=== PATIENT | female | born 1945 | race Caucasian/White ===

== ENCOUNTER → 2016-10-21 | Outpatient (CLI) | payer MEDICARE ==
--- NOTE | 2016-10-21 11:30 | XR ---
EXAMINATION TYPE: XR shoulder complete LT , 3 VIEWS DATE OF EXAM ORDERED: 10/21/2016 HISTORY: M25.512 L shoulder pain. COMPARISON: None. FINDINGS: There are mild hypertrophic changes in the left AC joint. No fracture, dislocation or othe r acute osseous lesion is seen. IMPRESSION: 1. NO ACUTE OSSEOUS LESION. 2. DEGENERATIVE CHANGE, LEFT AC JOINT.
== END | disposition home or self-care (01) ==
LOC: RADXRMAIN 11:04
PROVIDERS: ATTEND Internal Medicine
DX: M25.512 Pain in left shoulder (principal)

== ENCOUNTER → 2017-02-01 | Outpatient (CLI) | payer MEDICARE ==
--- NOTE | 2017-02-02 10:14 | MM ---
Reason for exam: screening (asymptomatic). Last mammogram was performed 1 year and 6 months ago. History: Patient is postmenopausal. Family history of premenopausal breast cancer in sister at age 55. Benign stereotactic core biopsy of the left breast, October 22, 2003. Physical Findings: A clinical breast exam by your physician is recommended on an annual basis and results should be correlated with mammographic findings. MG 3D Screening Mammo W/Cad Bilateral CC and MLO view(s) were taken. Prior study comparison: July 29, 2015, bilateral MG screening mammo w CAD. June 25, 2014, bilateral MG screening mammo w CAD. The breast tissue is heterogeneously dense. This may lower the sensitivity of mammography. Stable benign calcifications. There is chronic nodularity in the left breast. No significant changes when compared with prior studies. ASSESSMENT: Benign, BI-RAD 2 RECOMMENDATION: Routine screening mammogram of both breasts in 1 year.
== END | disposition home or self-care (01) ==
LOC: RADMAMWWP 11:02
PROVIDERS: ATTEND Internal Medicine
DX: Z12.31 Encounter for screening mammogram for malignant neoplasm of breast (principal)
CPT/HCPCS: 77063; G0202

== ENCOUNTER → 2019-09-15 | Outpatient (CLI) | payer MEDICARE ==
--- NOTE | 2019-09-15 14:50 | ECHOS ---
STRESS ECHOCARDIOGRAM LUMASON: Vial INDICATIONS: Chest pain. MEDICATIONS: BASELINE HEART RATE: 71 BASELINE BLOOD PRESSURE: 168/53 MAXIMUM HEART RATE: 175 MAXIMUM BLOOD PRESSURE: 189/77 85% MPHR: 122 100% MPHR: 144 METS: 2.4 MAXIMUM STAGE REACHED: 1 TOTAL EXERCISE TIME: 1:36 CLINICAL INFORMATION: Baseline EKG revealed normal sinus rhythm with an incomplete right bundle branch block pattern and slightly leftward axis. Patient walked on a standard Phong protocol for 2 minutes, achieved a maximal heart rate of 160 beats per minute, developed fatigue and shortness of breath. She went into what seems to be a run of paroxysmal atrial tachycardia, had frequent PVCs, a short self-limited run of atrial fib and then she had PVCs including at least 3 couplets and then in the recovery. She went back to a normal sinus rhythm with PACs. However, EKG portion of the stress test remains inconclusive given these arrhythmia changes. Patient did not have any angina. Extremely limited exercise capacity. Baseline echo images revealed normal wall motion and wall thickening of all segments. At peak exercise and a heart rate of nearly 140 beats per minute, there was good augmentation of left ventricular wall motion and wall thickening of all segments suggesting that there is no evidence of ischemia on this stress echocardiogram. Exercise capacity was quite limited and supraventricular ectopy were noted in the form of PACs, short runs of PAD and a self-limited run of atrial fibrillation. I have recommended a 24 hour Holter and initiated her on metoprolol tartrate 25 mg b.i.d. I spoke to Dr. Paris. IMPRESSION: 1. Extremely limited exercise capacity with a technically inconclusive stress test with frequent supraventricular ectopy as outlined above. 2. No evidence of ischemia on the stress echo but exercise capacity was quite limited making this somewhat difficult to interpret. 3. Patient will have a 24 hour Holter and will be initiated on metoprolol tartrate 25 mg b.i.d. MMODL / IJN: [id number] /
--- NOTE | 2019-09-29 11:23 | HM ---
HOLTER MONITOR REPORT HOLTER MONITOR: Holter monitor shows sinus mechanism with frequent PACs and very brief short runs of nonsustained atrial tachycardia. Heart racing from 38 to 105 beats per minute, average 50 beats per minute. No sustained arrhythmias. IMPRESSION: Frequent PACs and very short brief runs of nonsustained atrial tachycardia. MMDUSTY / RAVENN: [id number] /
== END | disposition home or self-care (01) ==
LOC: RADNMMAIN 08:57
PROVIDERS: ATTEND Internal Medicine
DX: I47.1 Supraventricular tachycardia (principal); I49.1 Atrial premature depolarization; R94.39 Abnormal result of other cardiovascular function study; I49.3 Ventricular premature depolarization; I48.91 Unspecified atrial fibrillation; I73.9 Peripheral vascular disease, unspecified; I10 Essential (primary) hypertension; E78.5 Hyperlipidemia, unspecified; E11.21 Type 2 diabetes mellitus with diabetic nephropathy
CPT/HCPCS: 93225; 93226; 93351

== ENCOUNTER → 2019-12-20 | Outpatient (CLI) | payer MEDICARE ==
--- NOTE | 2019-12-20 15:45 | BD ---
EXAMINATION TYPE: Axial Bone Density DATE OF EXAM: 12/20/2019 COMPARISON: 07.29.2015 CLINICAL HISTORY: 74 YR OLD FEMALE....ICD-10 CODE: M81.0 OSTEOPOROSIS Height: 62.3 Weight: 123 FRAX RISK QUESTIONS: NOTHING ADDITIONAL TO NOTE HERE RISK FACTORS HISTORY OF: HX OF ONLY CLAVICLE FX YOUTH Family History of Osteoporosis: AUNT ONLY Postmenopausal woman: YES, AT 50 YRS OLD Take estrogen and/or progesterone medications: ESTRACE CREAM FOR LONG TIME Hyperparathyroidism: NO Adrenal Insufficiency: NO MEDICATIONS: Osteoporosis Medications: FOSAMAX, FOR ABOUT 4 YRS Additional Medications: BP MEDS, DIABETIC MEDS, REFLUX MEDS IN PAST, STATIN FOR CHOLESTEROL, CALCIUM AND VIT D Additional History: HYPERTENSION, DIABETIC, REFLUX ON AND OFF, CHOLESTEROL EXAM MEASUREMENTS: Bone mineral densitometry was performed using the [employer]. Bone mineral density as measured about the Lumbar spine is: ----- L1-L4(G/cm2): 1.054 T Score Values are as follows: ----- L1: -1.2 ----- L2: -1.5 ----- L3: -0.3 ----- L4: -1.5 ----- L1-L4: -1.0 Bone mineral density has: Increased 14.7% SINCE: 07.29.2015 Bone mineral density about the R hip (g/cm2): 0.905 Bone mineral density about the L hip (g/cm2): 0.916 T Score values are as follows: -----R Neck: -1.6 -----L Neck: -1.0 -----R Total: -0.8 -----L Total: -0.7 Bone mineral density has: Decreased -0.3% SINCE: 07.29.2015 FRAX%s: THERE IS A 11.5% CHANCE FOR A MAJOR OSTEOPOROTIC FX AND A 2.7% FOR HIP.....PROBABILITY FOR FX IN 10 YRS TIME IMPRESSION: Osteopenia (T Score between -2.5 and -1). There is slightly increased risk of fracture and the patient may be considered for treatment. Re-Screen 2-5 years. NOTE: T-SCORE=SD OF THE YOUNG ADULT MEAN.
== END | disposition home or self-care (01) ==
LOC: RADMAMWWP 14:43
PROVIDERS: ATTEND Internal Medicine
DX: M85.80 Other specified disorders of bone density and structure, unspecified site (principal)
CPT/HCPCS: 77080

== ENCOUNTER → 2020-08-07 | Outpatient (CLI) | payer MEDICARE ==
--- NOTE | 2020-08-07 16:34 | XR ---
Lumbar spine HISTORY: Low back pain 4 views the lumbar spine Bone mineralization is reduced. Lumbar vertebral bodies show preserved height and alignment. Sclerosi s is present in the posterior elements. Some loss of disc height present at L5-S1 greater than the re mainder of the disc spaces, there is multilevel spondylosis. Atherosclerotic vascular calcifications are present. There is a slight spinal curvature at the lower lumbar spine. IMPRESSION: Degenerative disc disease and facet arthropathy, osteopenia.
== END | disposition home or self-care (01) ==
LOC: RADXRMAIN 10:30
PROVIDERS: ATTEND Internal Medicine
DX: M51.36 Other intervertebral disc degeneration, lumbar region (principal); M47.816 Spondylosis without myelopathy or radiculopathy, lumbar region; M85.88 Other specified disorders of bone density and structure, other site
CPT/HCPCS: 72100

== ENCOUNTER → 2021-01-16 | Outpatient (CLI) | payer MEDICARE ==
--- NOTE | 2021-01-16 14:32 | US ---
EXAMINATION TYPE: US kidneys/renal and bladder DATE OF EXAM: 01/16/2021 COMPARISON: NONE CLINICAL HISTORY: N18.30 Stage 3 Kidney disease, unspecified. EXAM MEASUREMENTS: Right Kidney: 9.7 x 3.1 x 3.9 cm Left Kidney: 9.7 x 4.2 x 3.5 cm Right Kidney: No hydronephrosis or masses seen Left Kidney: No hydronephrosis or masses seen , and 1 cm hypoechoic focus is present likely represent ing cortical cyst laterally at the left kidney midpole, additional focus is present medially measurin g only 8 mm Bladder: Anechoic There is no evidence for hydronephrosis at this point in time. No nephrolithiasis is seen. No shira s are identified. Cortical medullary differentiation is maintained, I question some increase in corti hola echogenicity. IMPRESSION: Renal sizes as described. Findings consistent with medical renal disease.
== END | disposition home or self-care (01) ==
LOC: RADUSWWP 12:24
PROVIDERS: ATTEND Internal Medicine
DX: N18.30 Chronic kidney disease, stage 3 unspecified (principal)
CPT/HCPCS: 76770

== ENCOUNTER → 2021-05-14 | Outpatient (CLI) | payer MEDICARE ==
--- NOTE | 2021-05-15 10:00 | ECHOF ---
Referral Reason:R01.1 murmur MEASUREMENTS -------- HEIGHT: 160.0 cm WEIGHT: 54.4 kg BP: RVIDd: 2.7 cm (< 3.3) IVSd: 1.2 cm (0.6 - 1.1) LVIDd: 4.0 cm (3.9 - 5.3) LVPWd: 1.1 cm (0.6 - 1.1) IVSs: 1.5 cm LVIDs: 2.5 cm LVPWs: 1.5 cm LAESV Index (A-L): 41.41 ml/m Ao Diam: 2.9 cm (2.0 - 3.7) AV Cusp: 1.8 cm (1.5 - 2.6) LA Diam: 3.8 cm (2.7 - 3.8) MV EXCURSION: 20.108 mm (> 18.000) MV EF SLOPE: 66 mm/s (70 - 150) EPSS: 0.4 cm MV E Goyo: 0.93 m/s MV DecT: 258 ms MV A Goyo: 0.74 m/s MV E/A Ratio: 1.26 AV maxP.42 mmHg AV meanP.00 mmHg AR PHT: 667 ms RAP: 5.00 mmHg RVSP: 50.55 mmHg FINDINGS -------- Sinus rhythm. This was a technically adequate study. The left ventricular size is normal. Left ventricular wall thickness is normal. Overall left vent ricular systolic function is normal with, an EF between 55 - 60 %. The right ventricle is normal in size. LA is severely dilated >40 ml/m2 The right atrial size is normal. Interatrial and interventricular septum intact. There is mild aortic regurgitation. There is mild aortic stenosis present. The maximum pressure g radient across the aortic valve is 17.42mmHg. Peak/mean gradient across the Aortic Valve is 17.42mm Hg / 9.00mmHg. Moderate mitral regurgitation is present. Moderate to severe tricuspid regurgitation present. There is moderate to severe pulmonary hypertens ion. The right ventricular systolic pressure, as measured by Doppler, is 50.55mmHg. There is no pulmonic regurgitation present. The aortic root size is normal. IVC Not well visulized. Echo free space represents a pericardial fat pad. There is no pericardial effusion. CONCLUSIONS -------- 1. The left ventricular size is normal. 2. Left ventricular wall thickness is normal. 3. Overall left ventricular systolic function is normal with, an EF between 55 - 60 %. 4. LA is severely dilated >40 ml/m2 5. There is mild aortic regurgitation. 6. There is mild aortic stenosis present. 7. The maximum pressure gradient across the aortic valve is 17.42mmHg. 8. Peak/mean gradient across the Aortic Valve is 17.42mmHg / 9.00mmHg. 9. Moderate mitral regurgitation is present. 10. Moderate to severe tricuspid regurgitation present. 11. There is moderate to severe pulmonary hypertension. 12. The right ventricular systolic pressure, as measured by Doppler, is 50.55mmHg. ASSISTANT PROFESSOR OF PSYCHOLOGY: Lauren Hernandez RDCS
== END | disposition home or self-care (01) ==
LOC: RADECHMAIN 13:59
PROVIDERS: ATTEND Internal Medicine
DX: I08.3 Combined rheumatic disorders of mitral, aortic and tricuspid valves (principal); I27.20 Pulmonary hypertension, unspecified
CPT/HCPCS: 93306

== ENCOUNTER → 2021-07-02 | Outpatient (CLI) | payer MEDICARE ==
--- NOTE | 2021-07-02 16:51 | CONS ---
CONSULTATION DATE OF SERVICE: 07/02/2021 This 76-year-old lady has been evaluated in Sleep Center for possible obstructive sleep apnea-hypopnea syndrome. HISTORY OF PRESENT ILLNESS/SLEEP-WAKE EVALUATION: Patient's usual sleep schedule is from 11 p.m. to 8 a.m. No problems with falling asleep. No TV in bedroom. The patient sleeps in different positions. According to her , she snores. She wakes up from sleep up to 3 times with up to 2 episodes of nocturia. Positive history of dry mouth, heartburn. No history of hypnagogic hallucinations, sleep paralysis or cataplexy. [place] Sleepiness Scale is 8. Possibly she may have one nap a day. PAST MEDICAL HISTORY: Positive for hypertension, diabetes mellitus, hyperlipidemia, arthritis, sinusitis, acid reflux, heart murmur. PAST SURGICAL HISTORY: Surgery for varicose vein problems. MEDICATIONS: 1. Metoprolol 25 mg half tablet a day. 2. Benazepril 20 mg half tablet a day. 3. Furosemide 20 mg once a day. 4. Metformin 500 mg three times a day. 5. Atorvastatin 40 mg once a day. 6. Vitamins. 7. Calcium, magnesium and zinc supplements. SOCIAL HISTORY: Negative for smoking or using alcohol. FAMILY HISTORY: Positive for hypertension, heart problems, cancer, diabetes, acid reflux. REVIEW OF SYSTEMS: Multiple awakenings from sleep, snoring. No fevers. No double vision. No recent chest pain. No shortness of breath. No abdominal pain. No bleeding episodes. No blood in the urine. No seizure episodes. PHYSICAL EXAMINATION: GENERAL: Pleasant lady without distress. VITAL SIGNS: BP 130/66, HR 51, RR 16, height 5 feet 3 inches, weight 121.4 pounds, body mass index 21.4, temperature 96.9, oxygen saturation at room air 98%. HEENT: PERRLA, EOMI, evaluation of oropharynx showed tongue protrudes midline. Extremely low position of soft palate; Mallampati IV. NECK: Supple, no JVD. Thyroid is not palpable. Neck measures 13-3/4 inches in circumference. LUNGS: Clear to percussion and to auscultation. Good air exchange. No wheezing or rhonchi. HEART: Slight systolic murmur. ABDOMEN: Soft and nontender. Bowel sounds are present. No organomegaly appreciated. EXTREMITIES: No clubbing or cyanosis. PRIMARY MILL ROLLER: Awake, alert, and oriented X3. Cranial nerves 2 to 7 intact. There is no fasciculation or atrophy. noted. No focal deficits observed. IMPRESSION: 1. Snoring, multiple awakenings from sleep, extremely low position of soft palate; possible obstructive sleep apnea-hypopnea syndrome. 2. Hypertension. 3. Diabetes mellitus. 4. Hyperlipidemia. 5. Arthritis. 6. History of sinusitis. 7. History of headaches. 8. Acid reflux. 9. Status post varicose vein surgery. 10.History of heart murmur. PLAN: 1. Polysomnography for evaluation of patient's breathing during sleep. 2. CPAP/BiPAP titration if sleep study confirms obstructive sleep apnea-hypopnea syndrome. 3. Preferable position during sleep on the side. 4. No driving if patient feels any sleepiness. 5. I will see patient for follow up visit to explain results of testing and following plan. Thank you very much for referring this patient for consultation. Sincerely, Adriel Fernandes MD, PhD, FAASM Diplomat of [employer] [employer] Sleep Medicine Board of [place] [employer] Spotter [facility] [place] MMODL / IJN: [id number] /
== END ==
LOC: SLEEP 14:37
PROVIDERS: ATTEND Internal Medicine
DX: G47.8 Other sleep disorders (principal); I10 Essential (primary) hypertension; E11.9 Type 2 diabetes mellitus without complications; E78.5 Hyperlipidemia, unspecified; M19.90 Unspecified osteoarthritis, unspecified site; R06.83 Snoring; Z87.09 Personal history of other diseases of the respiratory system; K21.9 Gastro-esophageal reflux disease without esophagitis; Z98.890 Other specified postprocedural states; Z86.79 Personal history of other diseases of the circulatory system; Z86.69 Personal history of other diseases of the nervous system and sense organs
CPT/HCPCS: 99211

== ENCOUNTER → 2021-10-01 | Outpatient (CLI) | payer MEDICARE ==
--- NOTE | 2021-10-01 11:22 | US ---
EXAMINATION TYPE: US thyroid st tissue head/neck DATE OF EXAM: 10/01/2021 COMPARISON: NONE CLINICAL HISTORY: E04.9 THYROID GOITER. dentists felt possible goiter, normal lab work GLAND SIZE: Right Lobe: 4.7 x 1.1 x 2.2 cm Overall Parenchyma: heterogenous Left Lobe: 3.5 x 0.7 x 0.8 cm Overall Parenchyma: homogeneous Isthmus Thickness: 0.2 cm NODULES RIGHT: # of nodules measured on right: 2 1. 0.9 X 0.6 x 0.9 cm, lower , cystic or almost completely cystic, anechoic nodule, which is taller than wide, with smooth margins, without echogenic foci. Prior size: LEAD SOFTWARE TEST ENGINEER 2. 1.4 X 0.8 x 0.8 cm, lower, solid or almost completely solid, isoechoic nodule, which is wider th an tall, with smooth margins, with echogenic foci. Prior size: LEAD SOFTWARE TEST ENGINEER LEFT: # of nodules measured on left: 0 ISTHMUS: # of nodules measured in the isthmus: 0 Bilateral neck scanned, no evidence of lymphadenopathy. IMPRESSION: Moderately suspicious nodule measuring 1.4 x 0.8 x 0.8 cm. Consider fine needle aspiration. 2017 ACR TI-RADS LEVEL: TR 4 *Highest TI-RADS level nodule reported
== END | disposition home or self-care (01) ==
LOC: RADUSWWP 10:23
PROVIDERS: ATTEND Internal Medicine
DX: E04.2 Nontoxic multinodular goiter (principal)
CPT/HCPCS: 76536

== ENCOUNTER 2021-11-18 13:04 | Day surgery (SDC) | payer MEDICARE ==
[2021-11-18 13:46] VITALS: PULSE 50; RESP 16; TEMP 97.9
[2021-11-18 14:31] VITALS: BP 136/61
--- NOTE | 2021-11-18 15:40 | US ---
EXAMINATION TYPE: US FNA thyroid first lesion DATE OF EXAM: 11/18/2021 COMPARISON: NONE HISTORY: Thyroid nodule. Maximal barrier technique was utilized. After informed consent, skin overlying the right lobe thyroi d nodule was localized with ultrasound and the overlying skin prepped and draped. Ultrasound was util ized using sterile technique. Lidocaine was used for local anesthesia. Five passes with a 25-gauge n eedle were made into the nodule and aspirated specimen was submitted to cytology. Following the proc edure hemostasis achieved. No immediate complication. The patient discharged in stable condition. IMPRESSION: STATUS POST ULTRASOUND GUIDED FINE NEEDLE ASPIRATION OF THYROID NODULE, PATHOLOGY IS PEND ING. THIS PROCEDURE WAS PERFORMED BY THE UNDERSIGNED.
== END 2021-11-18 14:40 | disposition home or self-care (01) ==
LOC: RADPROMAIN 13:04
PROVIDERS: ATTEND Internal Medicine
DX: E04.1 Nontoxic single thyroid nodule (principal)
CPT/HCPCS: 10005; 88173; 88305

== ENCOUNTER → 2022-01-07 | Outpatient (CLI) | payer MEDICARE ==
--- NOTE | 2022-01-07 11:41 | P.PN ---
Subjective DATE: 01/07/2022 FOLLOW UP VISIT. Patient with obstructive sleep apnea hypopnea syndrome return to sleep center for follow-up visit. Recently patient had sleep study which documented obstructive sleep apnea hypopnea syndrome. Patient was initiated on PAP therapy and today is first visit after treatment was started. I discuss results of sleep studies with patient in details and indicate again necessity for treatment of obstructive sleep apnea-hypopnea syndrome. Patient was able to use PAP equipment most of the nights. The patient does not have significant problems with the mask, PAP pressure and humidification. [place] sleepiness scale is 7. I checked information from PAP unit. PAP unit pressure 5-10, average 8.7 cm H2O. Usage is 83% and the 37 % for more then 4 hours, average 3.7 hours per night. Leak is 36 l/m, which is in acceptable range. Apnea Hypopnea Index is 5.4, which is slightly increased. MEDICATIONS:1. Metoprolol 25 mg half tablet a day 2. Benazepril 20 mg half tablet a day 3. Furosemide 20 mg once a day 4. Metformin 500 mg 3 times a day 5. Atorvastatin 40 mg once a day 6. Vitamins, calcium, magnesium and zinc supplement During physical exam: GENERAL: A pleasant patient without any distress. VITAL SIGNS: BP 132/48, HR 49, RR 16, weight 113.6, temperature 96.5, oxygen saturation at room air 100%. HEENT: PERRLA, EOMI.low position of soft palate, Mallapati 4 . NECK: Supple. No JVD. LUNGS: Clear to percussion and to auscultation. Good air exchange. No wheezing or rhonchi. HEART: S1, S2 regular. ABDOMEN: Soft and nontender.[] EXTREMITIES: No clubbing or cyanosis. RN RESEARCH: Awake, alert, and oriented x3. No focal deficit. Impressions: 1. Obstructive sleep apnea-hypopnea syndrome. Patient demonstrated borderline compliance with treatment, benefiting from treatment. 2. Hypertension. 3. Diabetes mellitus. 4. Hyperlipidemia. 5. History of arthritis. 6. History of sinusitis. 7. Acid reflux. 8. Status post varicose vein surgery. 9. History of heart murmur. Plan: 1. Continue using PAP equipment every night for the whole night. Patient promised to follow recommendations 2. I changed the pressure in CPAP unit to the range 5-11 centimeters of water. 3. PAP unit should stay lower then position of the head. 4. Advised patient to remove all remaining water from humidifier canister daily and make it dry after each usage. Refill canister with fresh distilled water before each usage. 5. Sleep hygiene with regular time in bed for at least 8 hours. 6. Precautions related to driving. No driving if feel any sleepiness. 7. I will maintain prescription for PAP supplies including mask, tube, filters. 8. Follow up visit in 6 months or earlier if patient has any problems. Thank you very much for allowing me to participate in the management of your patient. Adriel Fernandes MD, PhD, FAASM. Diplomat of [place] [employer], Sleep Medicine Board by [place] [employer] [facility] [place]
== END ==
LOC: SLEEP 10:37
PROVIDERS: ATTEND Internal Medicine
DX: G47.33 Obstructive sleep apnea (adult) (pediatric) (principal); I10 Essential (primary) hypertension; E11.9 Type 2 diabetes mellitus without complications; E78.5 Hyperlipidemia, unspecified; M19.90 Unspecified osteoarthritis, unspecified site; Z87.09 Personal history of other diseases of the respiratory system; K21.9 Gastro-esophageal reflux disease without esophagitis; Z86.79 Personal history of other diseases of the circulatory system; Z98.890 Other specified postprocedural states; Z79.84 Long term (current) use of oral hypoglycemic drugs; Z99.89 Dependence on other enabling machines and devices

== ENCOUNTER → 2022-07-30 | Outpatient (CLI) | payer MEDICARE ==
--- NOTE | 2022-07-30 11:31 | P.PN ---
Subjective DATE: 07/30/2022 FOLLOW UP VISIT. Patient with obstructive sleep apnea hypopnea syndrome return to sleep center for follow-up visit. Information from previous visit have been reviewed. Patient is using PAP equipment every night, getting PAP supplies in time. After awakenings at night patient not or less continue to use CPAP equipment. The patient does not have significant problems with the mask, PAP unit and humidification. [place] sleepiness scale is 7, which is normal. I checked information from PAP unit. PAP unit pressure 5-11, average 10.4 cm H2O. Usage is 73 % average 3.5 hours per night. Leak is 10.9 l/m, which is in acceptable range. Apnea Hypopnea Index is 2.9, which is normal. Air filter is in bad condition needs to be changed. Ramp is off. MEDICATIONS:1. Metformin 500 mg once a day 2. Atorvastatin 40 mg once a day 3. Amlodipine 5 mg once a day 4. Metoprolol 25 mg half of the tablet once a day 5. Benazepril 20 mg half of the tablet once a day During physical exam: GENERAL: A pleasant patient without any distress. VITAL SIGNS: BP 134/72, HR 53, RR 12 , weight 110.2, temperature 97.7, oxygen saturation at room air 98 % . HEENT: PERRLA, EOMI.low position of soft palate, Mallapati 4 . NECK: Supple. No JVD. LUNGS: Clear to percussion and to auscultation. Good air exchange. No wheezing or rhonchi. HEART: S1, S2 regular. ABDOMEN: Soft and nontender.[] EXTREMITIES: No clubbing or cyanosis. EXPLOSIVE ORDNANCE HANDLER: Awake, alert, and oriented x3. No focal deficit. Impressions: 1. Obstructive sleep apnea-hypopnea syndrome. Patient demonstrated borderline compliance with treatment, benefiting from treatment. 2. Hypertension. 3. Diabetes mellitus. 4. Acid reflux. 5. History of arthritis. 6. History of sinusitis. 7. Hyperlipidemia. 8. Status post varicose vein surgery. 9. History of heart murmur. Plan: 1. Continue using PAP equipment every night for the whole night. I changed parameters in CPAP unit: Ramp changed to on, auto regimen. I decreased maximal pressure down to 10 cm of water. 2. To change air filter at least 1-2 times per month. 3. PAP unit should stay lower then position of the head. 4. Advised patient to remove all remaining water from humidifier canister daily and make it dry after each usage. Refill canister with fresh distilled water before each usage. 5. Sleep hygiene with regular time in bed for at least 8 hours. 6. Precautions related to driving. No driving if feel any sleepiness. 7. I will maintain prescription for PAP supplies including mask, tube, filters. 8. Follow up visit in 4 months or earlier if patient has any problems. 9. Watching weight. Thank you very much for allowing me to participate in the management of your patient. Adriel Fernandes MD, PhD, FAASM. Diplomat of [place] [employer], Sleep Medicine Board by [place] [employer] Paper Tube Cutter [facility] [place]
== END ==
LOC: SLEEP 11:07
PROVIDERS: ATTEND Internal Medicine
DX: G47.33 Obstructive sleep apnea (adult) (pediatric) (principal); I10 Essential (primary) hypertension; E11.9 Type 2 diabetes mellitus without complications; K21.9 Gastro-esophageal reflux disease without esophagitis; M19.90 Unspecified osteoarthritis, unspecified site; E78.5 Hyperlipidemia, unspecified; Z79.84 Long term (current) use of oral hypoglycemic drugs; Z79.899 Other long term (current) drug therapy; Z98.890 Other specified postprocedural states; Z87.09 Personal history of other diseases of the respiratory system; Z99.89 Dependence on other enabling machines and devices
CPT/HCPCS: 99212

== ENCOUNTER 2024-11-21 11:16 | Observation (INO) | payer MEDICARE ==
[2024-11-21 12:04] LABS: Basophils # (A) 0.02 10*3/uL (0.00-0.10); Basophils % (A) 0.3 %; Eosinophils # (A) 0.19 10*3/uL (0.04-0.35); Eosinophils % (A) 3.3 %; HCT 35.2 % (37.2-46.3); HGB 11.5 g/dL (12.0-15.0); Lymphocytes # (A) 1.46 10*3/uL (0.90-5.00); Lymphocytes % (A) 25.4 %; MCH 31.3 pg (27.0-32.0); MCHC 32.7 g/dL (32.0-37.0); MCV 95.7 fL (80.0-97.0); Monocytes # (A) 0.46 10*3/uL (0.20-1.00); Monocytes % (A) 8.0 %; Neutrophils # (A) 3.59 10*3/uL (1.80-7.70); Neutrophils % (A) 62.7 %; Platelet Count 185 10*3/uL (140-440); RBC 3.68 10*6/uL (4.10-5.20); RDW 11.8 % (11.5-14.5); WBC 5.74 10*3/uL (4.50-10.00)
[2024-11-21 12:31] LABS: ALT 31 U/L (4-34); African American GFR (CKD) 33 (>60 ml/min/1.73 sqM); Anion Gap 8 mmol/L; Blood Urea Nitrogen 54 mg/dL (7-17); Calcium 9.7 mg/dL (8.4-10.2); Carbon Dioxide 21 mmol/L (22-30); Chloride 108 mmol/L (98-107); Glucose 194 mg/dL (74-99); Non-African American GFR(CKD) 29 (>60 ml/min/1.73 sqM); Sodium 137 mmol/L (137-145)
[2024-11-21 12:33] LABS: AST 40 U/L (14-36); Albumin 4.1 g/dL (3.5-5.0); Alkaline Phosphatase 86 U/L (38-126); Potassium 6.3 mmol/L (3.5-5.1); Total Protein 7.0 g/dL (6.3-8.2)
[2024-11-21] MEDS: INSULIN REGULAR 100 UNIT/ML VIAL (IV) IV ONE (12:57)
[2024-11-21] MEDS: DEXTROSE 50% SYRINGE 50 ML IVP ONE (12:59)
[2024-11-21] MEDS: SODIUM ZIRCONIUM CYCLOSILICATE 10 GM PACKET PO ONE (13:08)
[2024-11-21] MEDS: CALCIUM GLUCONATE IN NACL 1 GM in SALINE 1 100ML.BAG IVPB ONE (13:08)
[2024-11-21] MEDS ORDERED: NALOXONE 0.4 MG/ML 1 ML VIAL IV PRN (13:24)
--- NOTE | 2024-11-21 13:24 | ED ---
General Adult HPI - General Chief complaint: Recheck/Abnormal Lab/Rx Stated complaint: Irrg Labs Time Seen by Provider: 11/21/24 11:50 Source: patient Mode of arrival: ambulatory Limitations: no limitations - History of Present Illness Initial comments: Dictation was produced using [employer] dictation software. please excuse any grammatical, word or spelling errors. Chief Complaint: 79-year-old female presents with abnormal outpatient lab History of Present Illness: Patient is 79-year-old female she was sent here by her primary care doctor for hyperkalemia. She had outpatient blood work that showed potassium of 6.0. Patient was seen yesterday at PCPs office for routine checkup. She states that she has some kidney issues. She had blood work drawn yesterday and received a call today to come to the emergency department for further evaluation. Patient Nuys any pain complaints. States that she has been feeling slightly lightheaded. The ROS documented in this emergency department record has been reviewed and confirmed by me. Those systems with pertinent positive or negative responses have been documented in the HPI. All other systems are other negative and/or noncontributory. - Related Data Home Medications Medication Instructions Recorded Confirmed Atorvastatin [Lipitor] 40 mg PO HS 10/17/21 10/17/21 Benazepril HCl [Lotensin] 20 mg PO DAILY 10/17/21 10/17/21 Metoprolol Tartrate [Lopressor] 12.5 mg PO DAILY 10/17/21 10/17/21 amLODIPine [Norvasc] 5 mg PO DAILY 10/17/21 10/17/21 metFORMIN HCL 500 mg PO AC-TID 10/17/21 10/17/21 Allergies Allergy/AdvReac Type Severity Reaction Status Date / Time No Known Allergies Allergy Verified 11/18/21 13:42 Review of Systems ROS Statement: Those systems with pertinent positive or pertinent negative responses have been documented in the HPI. ROS Other: All systems not noted in ROS Statement are negative. Past Medical History Past Medical History: Diabetes Mellitus, Hypertension, Sleep Apnea/CPAP/BIPAP History of Any Multi-Drug Resistant Organisms: None Reported Past Surgical History: No Surgical Hx Reported Past Anesthesia/Blood Transfusion Reactions: No Reported Reaction Past Psychological History: No Psychological Hx Reported Smoking Status: Never smoker Past Drug Use History: None Reported - Past Family History Father Family Medical History: Cancer Mother Family Medical History: Coronary Artery Disease (CAD) General Exam - General Exam Comments Initial Comments: PHYSICAL EXAM: General Impression: Alert and oriented x3, not in acute distress HEENT: Normocephalic atraumatic, extra-ocular movements intact, pupils equal and reactive to light bilaterally, mucous membranes moist. Cardiovascular: Heart regular rate and rhythm Chest: Able to complete full sentences, no retractions, no tachypnea Abdomen: abdomen soft, non-tender, non-distended, no organomegaly Musculoskeletal: Pulses present and equal in all extremities, no peripheral edema Motor: no focal deficits noted Neurological: CN II-XII grossly intact, no focal motor or sensory deficits noted Skin: Intact with no visualized rashes Psych: Normal affect and mood Limitations: no limitations Course Vital Signs 11/21/24 11/21/24 11:29 12:19 Temperature 97.9 F Pulse Rate 55 L 56 L Respiratory 20 18 Rate Blood Pressure 175/74 176/81 O2 Sat by Pulse 99 97 Oximetry Medical Decision Making - Medical Decision Making Was pt. sent in by a medical professional or institution (, PA, NON DESTRUCTIVE EVALUATION MANAGER, urgent care, hospital, or detention...) When possible be specific @ -No Did you speak to anyone other than the patient for history (EMS, parent, family, police, friend...)? What history was obtained from this source @ -No Did you review nursing and triage notes (agree or disagree)? Why? @ -I reviewed and agree with nursing and triage notes Were old charts reviewed (outside hosp., previous admission, EMS record, old EKG, old radiological studies, urgent care reports/EKG's, detention records)? Report findings @ -No old charts were reviewed Differential Diagnosis (chest pain, altered mental status, abdominal pain women, abdominal pain men, vaginal bleeding, musculoskeletal, weakness, fever, dyspnea, syncope, headache, dizziness, GI bleed, back pain, seizure, CVA, palpatations, mental health)? @ -Hyperkalemia, hypomagnesemia, electrolyte derangement EKG interpreted by me (3pts min.). @ - X-rays interpreted by me (1pt min.). @ -None done CT interpreted by me (1pt min.). @ -None done U/S interpreted by me (1pt. min.). @ -None done What testing was considered but not performed or refused? (CT, X-rays, U/S, labs)? Why? @ -None What meds were considered but not given or refused? Why? @ -None Was smoking cessation discussed for >3mins.? @ -No Were there social determinants of health that impacted care today? How? (H omelessness, low income, unemployed, alcoholism, drug addiction, transportation, low edu. Level, literacy, decrease access to med. care, longterm, rehab)? @ -No Was there de-escalation of care discussed even if they declined (Discuss DNR or withdrawal of care, Hospice)? DNR status @ -No What co-morbidities impacted this encounter? (DM, HTN, Smoking, COPD, CAD, Cancer, CVA, ARF, Chemo, Hep., AIDS, mental health diagnosis, sleep apnea, morbid obesity)? @ -None Was patient admitted / discharged? Hospital course, mention meds given and route, prescriptions, significant lab abnormalities, going to OR and other pertinent info. @ -79-year-old female presents to the emergency department for hyperkalemia. Vital signs upon arrival are within acceptable limits. Patient well-appearing at the bedside. Laboratory evaluation obtained. Potassium 6.3. Elevated renal function which is above patient's baseline. Patient given hyperkalemia cocktail. Will be admitted for hyperkalemia. Nephrology consulted Did you discuss the management of the patient with other professionals (professionals i.e. , PA, NON DESTRUCTIVE EVALUATION MANAGER, lab, RT, psych nurse, hospice social worker, sales enablement specialist, teacher, commissary officer, lining caser)? Give summary @ -No Was critical care preformed (if so, how long)? @ -Yes, 33 minutes Undiagnosed new problem with uncertain prognosis? @ -No Drug Therapy requiring intensive monitoring for toxicity (Heparin, Nitro, Insulin, Cardizem)? @ -No Were any procedures done? @ -No Diagnosis/symptom? Acute, or Chronic, or Acute on Chronic? Uncomplicated (without systemic symptoms) or Complicated (systemic symptoms)? @ -Hyperkalemia Side effects of treatment? @ -No Exacerbation, Progression, or Severe Exacerbation? @ -No Poses a threat to life or bodily function? How? (Chest pain, [place], [place], pneumonia, PE, COPD, DKA, ARF, appy, cholecystitis, CVA, Diverticulitis, Homicidal, [place] icidal, threat to staff... and all critical care pts) @ -yes - Lab Data Result diagrams: 11/21/24 11:47 11/21/24 11:47 Lab Results 11/21/24 11/21/24 Range/Units 11:47 11:47 WBC 5.74 (4.50-10.00) 10*3/uL RBC 3.68 L (4.10-5.20) 10*6/uL Hgb 11.5 L (12.0-15.0) g/dL Hct 35.2 L (37.2-46.3) % MCV 95.7 (80.0-97.0) fL MCH 31.3 (27.0-32.0) pg MCHC 32.7 (32.0-37.0) g/dL Plt Count 185 (140-440) 10*3/uL MPV 10.6 (9.5-12.2) fL Immature Gran % (Auto) 0.3 % Neutrophils % 62.7 % Lymphocytes % 25.4 % Monocytes % 8.0 % Eosinophils % 3.3 % Basophils % 0.3 % Immature Gran # 0.02 (0.00-0.04) 10*3/uL Neutrophils # 3.59 (1.80-7.70) 10*3/uL Lymphocytes # 1.46 (0.90-5.00) 10*3/uL Monocytes # 0.46 (0.20-1.00) 10*3/uL Eosinophils # 0.19 (0.04-0.35) 10*3/uL Basophils # 0.02 (0.00-0.10) 10*3/uL Sodium 137 (137-145) mmol/L Potassium 6.3 H* (3.5-5.1) mmol/L Chloride 108 H (98-107) mmol/L Carbon Dioxide 21 L (22-30) mmol/L Anion Gap 8 mmol/L BUN 54 H (7-17) mg/dL Creatinine 1.66 H (0.52-1.04) mg/dL Est GFR (CKD-EPI)AfAm 33 (>60 ml/min/1.73 sqM) Est GFR (CKD-EPI)NonAf 29 (>60 ml/min/1.73 sqM) Glucose 194 H (74-99) mg/dL Calcium 9.7 (8.4-10.2) mg/dL Total Bilirubin 0.8 (0.2-1.3) mg/dL AST 40 H (14-36) U/L ALT 31 (4-34) U/L Alkaline Phosphatase 86 (38-126) U/L Total Protein 7.0 (6.3-8.2) g/dL Albumin 4.1 (3.5-5.0) g/dL Disposition Clinical Impression: Hyperkalemia Disposition: ADMITTED IP TO THIS HOSP Condition: Fair Referrals: Luis Saldana MD [Primary Care Provider] - 1-2 days Decision Time: 13:24
[2024-11-21] MEDS: SODIUM CHLORIDE 0.9% 1,000 ML IV SCH (13:33)
[2024-11-21] MEDS ORDERED: DEXTROSE 50% SYRINGE 50 ML IVP PRN ×2 (14:56)
--- NOTE | 2024-11-21 15:37 | US ---
EXAMINATION TYPE: US renals and bladder DATE OF EXAM: 11/21/2024 COMPARISON: US 2020 CLINICAL INDICATION: Female, 79 years old with history of emerita; EMERITA TECHNIQUE: Grayscale imaging of the bilateral kidneys and urinary bladder: FINDINGS: EXAM MEASUREMENTS: Right Kidney: 9.2 x 4.1 x 3.3 cm Left Kidney: 8.2 x 4.4 x 4.0 cm Right Kidney: *Anechoic area seen lower pole: 1.3 x 1.2 x 0.9 cm. Left Kidney: *Measures small in size, although visibility is somewhat limited. *Hypoechoic area seen laterally: 1.6 x 1.9 x 1.0 cm. Bladder: Appears wnl Bilateral Jets seen: Yes No hydronephrosis or shadowing renal calculus. Right renal lower pole simple 1.3 cm cyst. Left latera l mid kidney 1.9 cm probable cyst. Cortical medullary differentiation is maintained bilaterally. Urin brenda bladder is anechoic and appears unremarkable. Bilateral ureteral jets identified. IMPRESSION: No evidence for obstructive uropathy. [facility], , 11/21/2024 3:35 PM
--- NOTE | 2024-11-21 15:38 | P.HPIM ---
History of Present Illness H&P Date: 11/21/24 Patient is a 79-year-old female with past medical history of NOEL on CPAP, type II DM, hyperlipidemia, hypertension who presented to the ER on 11/21 because she was sent here by PCP due to abnormal lab work particularly elevated potassium level. Saw her PCP for regular checkup and had her blood work done ,showed potassium of 6.0. She complains of feeling shakyr over the past 2 to 3 days, no dizziness, lightheadedness, fevers, chills, chest pain, shortness of breath, abdominal pain, urine production changes, changes in bowel habits, lower extremity edema. She did have left hip pain that she took her medications for, could not remember the name stated it was a prescription drug. She did have unintentional weight loss that is currently stabilized, per patient, it was attributed to her previous diabetes medication. On arrival afebrile, heart rate 55, BP elevated 175/74, satting well on room air. Pertinent positives and negatives as discussed in HPI, a complete review of systems was performed and all other systems are negative. Patient seen and examined at bedside. Vital signs reviewed General: nontoxic, no distress, appears at stated age Derm: warm, dry Head: atraumatic, normocephalic, symmetric Eyes: EOMI, no lid lag, anicteric sclera, pupils equal round reactive to light ENT: Nose and ears atraumatic Neck: No thyromegaly, supple Mouth: no lip lesion, mucus membranes moist Cardiovascular: S1S2 reg, no murmur, no edema Lungs: clear to auscultation bilateral, no rhonchi, no rales, no wheeze, no accessory muscle use Abdominal: soft, nontender to palpation, no guarding, no appreciable organomegaly Ext: no gross muscle atrophy, muscle strength muscle strength 5 out of 5 in all 4 extremities, no contractures Neuro: CN II-XII grossly intact Psych: Alert, oriented, appropriate affect Assessment/Plan: Hyperkalemia EMERITA on CKD 3B -Baseline creatinine around 1.4, creatinine on 11/20 1.8 -Will check uric acid, urinalysis, urine creatinine -TSH checked by PCP on 11/20: 1.27, A1c 6.9 -Repeat potassium pending, patient received hyperkalemia cocktail with insulin, calcium gluconate and Lokelma 10 x 1, BMP daily -Renal ultrasound, strict I's and O's, telemetry Hypertension -Continue amlodipine 5 mg nightly, hold benazepril 20 mg daily type 2DM not on insulin -Hold home glipizide, continue with Accu-Cheks, hypoglycemia precautions, low intensity SSI Hyperlipidemia: Continue home Lipitor 40 mg nightly NOEL on CPAP, continue CPAP The patient is admitted with an anticipated less than 2 midnight stay as observation status for evaluation of hyperkalemia. CODE STATUS:full, patient requested more time to think about it and talk to her family DVT prophylaxis: Heparin Anticipated discharge date: 11/[address]: Home A total of 40 minutes was spent on the care of this complex patient more than 50% of the time was spent in counseling and care coordination. Past Medical History Past Medical History: Diabetes Mellitus, Hypertension, Sleep Apnea/CPAP/BIPAP History of Any Multi-Drug Resistant Organisms: None Reported Past Surgical History: No Surgical Hx Reported Past Anesthesia/Blood Transfusion Reactions: No Reported Reaction Past Psychological History: No Psychological Hx Reported Smoking Status: Never smoker Past Drug Use History: None Reported - Past Family History Father Family Medical History: Cancer Mother Family Medical History: Coronary Artery Disease (CAD) Medications and Allergies Home Medications Medication Instructions Recorded Confirmed Type Atorvastatin [Lipitor] 40 mg PO W/SUPPER 10/17/21 11/21/24 History Benazepril HCl [Lotensin] 20 mg PO DAILY 10/17/21 11/21/24 History amLODIPine [Norvasc] 5 mg PO HS 10/17/21 11/21/24 History Calcium Carb/Mag Ox/Zinc Sulf 1 tab PO W/SUPPER 11/21/24 11/21/24 History [Dsv-Rsj-Pzjk 334-134-5 mg Tab] Mv-Mn/Om3/Dha/Epa/Fish/Lut/Emir 1 cap PO W/SUPPER 11/21/24 11/21/24 History [Ocuvite Adult 50 Plus Softgel] Vitamin D (Unknown Dose) 1 cap PO W/SUPPER 11/21/24 11/21/24 History glipiZIDE XL [Glucotrol Xl] 2.5 mg PO W/SUPPER 11/21/24 11/21/24 History Allergies Allergy/AdvReac Type Severity Reaction Status Date / Time No Known Allergies Allergy Verified 11/21/24 14:37 Physical Exam Vitals: Vital Signs Temp Pulse Resp BP Pulse Ox 11/21/24 13:35 53 L 18 152/97 100 11/21/24 12:19 56 L 18 176/81 97 11/21/24 11:29 97.9 F 55 L 20 175/74 99 Intake and Output 11/20/24 11/21/24 11/21/24 22:59 06:59 14:59 Other: Weight 45.359 kg Results CBC & Chem 7: 11/21/24 11:47 11/21/24 11:47 Labs: Abnormal Lab Results - Last 24 Hours (Table) 11/21/24 11/21/24 Range/Units 11:47 11:47 RBC 3.68 L (4.10-5.20) 10*6/uL Hgb 11.5 L (12.0-15.0) g/dL Hct 35.2 L (37.2-46.3) % Potassium 6.3 H* (3.5-5.1) mmol/L Chloride 108 H (98-107) mmol/L Carbon Dioxide 21 L (22-30) mmol/L BUN 54 H (7-17) mg/dL Creatinine 1.66 H (0.52-1.04) mg/dL Glucose 194 H (74-99) mg/dL AST 40 H (14-36) U/L
[2024-11-21 17:30] LABS: Potassium 4.8 mmol/L (3.5-5.1); Uric Acid 5.6 mg/dL (3.7-7.4)
[2024-11-21 17:45] LABS: Glucose,Whole Blood 59 mg/dL (70-110)
[2024-11-21] MEDS: ATORVASTATIN 40 MG TAB PO SCH (18:16)
[2024-11-21] MEDS: INSULIN LISPRO (HumaLOG) 100 UNIT/ML 10 mL VL SQ SCH (18:17)
[2024-11-21 18:56] LABS: Glucose,Whole Blood 120 mg/dL (70-110)
[2024-11-21 19:22] LABS: Bilirubin,Urine Negative (Negative); Blood,Urine Negative (Negative); Color,Urine Colorless; Glucose,Urine (UA) Trace (Negative); Ketones,Urine Negative (Negative); Leukocyte Esterase,Urine Negative (Negative); Nitrite,Urine Negative (Negative); PH, Urine 5.5 (5.0-8.0); Protein,Urine Negative (Negative); Specific Gravity,Urine 1.007 (1.001-1.035); Urobilinogen,Urine <2.0 mg/dL (<2.0)
[2024-11-21] MEDS: amLODIPine 5 MG TAB PO SCH (20:50)
[2024-11-21] MEDS: HEPARIN SODIUM,PORCINE 5,000 UNIT/ML 1 ML VIAL SQ SCH (20:55)
[2024-11-21 21:00] LABS: Glucose,Whole Blood 203 mg/dL (70-110)
[2024-11-22 00:37] LABS: Glucose,Whole Blood 209 mg/dL (70-110)
[2024-11-22 06:36] LABS: Glucose,Whole Blood 103 mg/dL (70-110)
[2024-11-22 07:26] LABS: Basophils # (A) 0.02 10*3/uL (0.00-0.10); Basophils % (A) 0.4 %; Eosinophils # (A) 0.17 10*3/uL (0.04-0.35); Eosinophils % (A) 3.6 %; HCT 32.5 % (37.2-46.3); HGB 10.5 g/dL (12.0-15.0); Lymphocytes # (A) 1.39 10*3/uL (0.90-5.00); Lymphocytes % (A) 29.6 %; MCH 31.3 pg (27.0-32.0); MCHC 32.3 g/dL (32.0-37.0); MCV 97.0 fL (80.0-97.0); Monocytes # (A) 0.48 10*3/uL (0.20-1.00); Monocytes % (A) 10.2 %; Neutrophils # (A) 2.62 10*3/uL (1.80-7.70); Neutrophils % (A) 56.0 %; Platelet Count 169 10*3/uL (140-440); RBC 3.35 10*6/uL (4.10-5.20); RDW 11.9 % (11.5-14.5); WBC 4.69 10*3/uL (4.50-10.00)
[2024-11-22 07:36] LABS: African American GFR (CKD) 44 (>60 ml/min/1.73 sqM); Anion Gap 7 mmol/L; Blood Urea Nitrogen 38 mg/dL (7-17); Calcium 9.3 mg/dL (8.4-10.2); Carbon Dioxide 23 mmol/L (22-30); Chloride 112 mmol/L (98-107); Glucose 91 mg/dL (74-99); Non-African American GFR(CKD) 38 (>60 ml/min/1.73 sqM); Potassium 5.0 mmol/L (3.5-5.1); Sodium 142 mmol/L (137-145)
--- NOTE | 2024-11-22 11:08 | P.NPCON ---
History of Present Illness - Reason for Consult acute renal failure, chronic renal failure, hyperkalemia - History of Present Illness Reason for consultation: Acute kidney injury on chronic kidney disease and hyperkalemia History of present illness: Patient is a 79-year-old female seen in renal consultation for acute kidney injury on chronic kidney disease and hyperkalemia. Patient has chronic kidney d isease stage IIIa with baseline creatinine 1.3-1.5. Creatinine was 1.6 on admission and is 1.31 today. Patient had blood work done outpatient by her primary care physician and was subsequently advised to go to the hospital due to elevated potassium level. Potassium level on admission was 6.3 and is improved to 4.8 this morning. She was on JERMAIN inhibitor which is now held. She admits to good urine output. No gross hematuria or dysuria. She did have some loose bowel movements but is now resolved. She does have history of diabetes. Denies history of coronary artery disease. Denies use of nonsteroidals. No fever or chills. No chest pain or shortness of breath. Vital signs are stable. General: No acute distress. HEENT: Head exam is unremarkable. LUNGS: No audible rhonchi or wheezes. HEART: Rate and Rhythm are regular. ABDOMEN: Non-tender. EXTREMITITES: No edema. Past Medical History Past Medical History: Diabetes Mellitus, Hypertension, Sleep Apnea/CPAP/BIPAP History of Any Multi-Drug Resistant Organisms: None Reported Past Surgical History: No Surgical Hx Reported Past Anesthesia/Blood Transfusion Reactions: No Reported Reaction Past Psychological History: No Psychological Hx Reported Smoking Status: Never smoker Past Drug Use History: None Reported - Past Family History Father Family Medical History: Cancer Mother Family Medical History: Coronary Artery Disease (CAD) Medications and Allergies Home Medications Medication Instructions Recorded Confirmed Type Atorvastatin [Lipitor] 40 mg PO W/SUPPER 10/17/21 11/21/24 History Benazepril HCl [Lotensin] 20 mg PO DAILY 10/17/21 11/21/24 History amLODIPine [Norvasc] 5 mg PO HS 10/17/21 11/21/24 History Calcium Carb/Mag Ox/Zinc Sulf 1 tab PO W/SUPPER 11/21/24 11/21/24 History [Slo-Hin-Bjgn 334-134-5 mg Tab] Mv-Mn/Om3/Dha/Epa/Fish/Lut/Emir 1 cap PO W/SUPPER 11/21/24 11/21/24 History [Ocuvite Adult 50 Plus Softgel] Vitamin D (Unknown Dose) 1 cap PO W/SUPPER 11/21/24 11/21/24 History glipiZIDE XL [Glucotrol Xl] 2.5 mg PO W/SUPPER 11/21/24 11/21/24 History Allergies Allergy/AdvReac Type Severity Reaction Status Date / Time No Known Allergies Allergy Verified 11/21/24 14:37 Physical Exam Vitals: Vital Signs Temp Pulse Pulse Resp BP BP Pulse Ox 11/22/24 07:40 98.0 F 62 14 160/60 98 11/22/24 04:00 45 L 16 143/55 96 11/22/24 00:00 97.4 F L 55 L 16 120/51 96 11/21/24 21:32 97.7 F 57 L 16 162/67 97 11/21/24 20:47 97.9 F 57 L 16 147/65 98 11/21/24 18:20 60 18 173/67 99 11/21/24 18:12 57 L 25 H 95 11/21/24 14:00 47 L 16 150/63 100 11/21/24 13:35 53 L 18 152/97 100 11/21/24 12:19 56 L 18 176/81 97 11/21/24 11:29 97.9 F 55 L 20 175/74 99 Intake and Output 11/21/24 11/22/24 11/22/24 22:59 06:59 14:59 Intake Total 240 Balance 240 Intake: Oral 240 Other: Voiding Method Toilet # Voids 1 1 # Bowel Movements 1 Weight 45.359 kg 52.5 kg Results - Lab Results Most recent lab results Calcium 9.3 mg/dL (8.4-10.2) 11/22/24 05:24 11/22/24 05:24 11/22/24 05:24 Assessment and Plan Plan: Assessment: 1. Acute kidney injury secondary to vasomotor nephropathy, improved. Creatinine 1.6 on admission and is 1.3 today. No hydronephrosis noted on ultrasound. Left kidney atrophic. 2. Benign hypertension. 3. Diabetes mellitus. 4. Hyperkalemia secondary to acute kidney injury and JERMAIN inhibitor use. Improved. Plan: Maintain IV fluids. Continue to hold benazepril for now. Increase amlodipine dose to 10 mg once daily. Avoid nephrotoxins. Follow-up outpatient 1 week postdischarge. Thank you for the consultation. I will continue to follow the patient with you during her hospital stay.
[2024-11-22 11:30] LABS: Glucose,Whole Blood 123 mg/dL (70-110)
--- NOTE | 2024-11-22 12:01 | P.PN ---
Subjective Progress Note Date: 11/22/24 Hospital course is a 79-year-old female with past medical history of NOEL on CPAP, type II DM, hy perlipidemia, hypertension who presented to the ER on 11/21 because she was sent here by PCP due to abnormal lab work particularly elevated potassium level. Saw her PCP for regular checkup and had her blood work done ,showed potassium of 6.0. She complains of feeling shakyr over the past 2 to 3 days, no dizziness, lightheadedness, fevers, chills, chest pain, shortness of breath, abdominal pain, urine production changes, changes in bowel habits, lower extremity edema. She did have left hip pain that she took her medications for, could not remember the name stated it was a prescription drug. She did have unintentional weight loss that is currently stabilized, per patient, it was attributed to her previous diabetes medication. On arrival afebrile, heart rate 55, BP elevated 175/74, satting well on room air. Lab work showed, 6.3, creatinine 1.66. Patient received hyperkalemia cocktail, will be admitted for observation with nephrology consulted. 11/22: Patient seen and examined at bedside, no acute events overnight, she feels better, she is ambulating to the bathroom, has good appetite, normal urine production. Her CBC is stable, creatinine trending down to 1.31, potassium normal 5.0, UA came back negative for pyuria, hematuria, proteinuria. Her vital signs remained stable, she was bradycardic in 50s overnight, states that she is always in 50s to 60s, denies dizziness, lightheadedness. IV fluids with NS at 75 cc/h, her benazepril was held Norvasc increased to 10 mg. Under ultrasound showed no evidence of hydronephrosis left kidney atrophic. Pertinent positives and negatives as discussed in HPI, a complete review of systems was performed and all other systems are negative. Patient seen and examined at bedside. Vital signs reviewed General: nontoxic, no distress, appears at stated age Derm: warm, dry Head: atraumatic, normocephalic, symmetric Eyes: EOMI, no lid lag, anicteric sclera, pupils equal round reactive to light ENT: Nose and ears atraumatic Neck: No thyromegaly, supple Mouth: no lip lesion, mucus membranes moist Cardiovascular: S1S2 reg, no murmur, no edema Lungs: clear to auscultation bilateral, no rhonchi, no rales, no wheeze, no accessory muscle use Abdominal: soft, nontender to palpation, no guarding, no appreciable organomegaly Ext: no gross muscle atrophy, muscle strength muscle strength 5 out of 5 in all 4 extremities, no contractures Neuro: CN II-XII grossly intact Psych: Alert, oriented, appropriate affect Assessment/Plan: Hyperkalemia EMERITA on CKD 3B -UA as above -TSH checked by PCP on 11/20: 1.27, A1c 6.9 - Recheck BMP in the morning - Ultrasound as above Hypertension - Increase amlodipine to milligram nightly, hold benazepril 20 mg daily type 2DM not on insulin -Hold home glipizide, continue with Accu-Cheks, hypoglycemia precautions, low intensity SSI Hyperlipidemia: Continue home Lipitor 40 mg nightly NOEL on CPAP, continue CPAP The patient is admitted with an anticipated less than 2 midnight stay as observation status for evaluation of hyperkalemia. CODE STATUS:full, patient requested more time to think about it and talk to her family DVT prophylaxis: Heparin Anticipated discharge date: 11/[address]: Home Objective - Vital Signs Vital signs: Vital Signs Temp 98.0 F 11/22/24 07:40 Pulse 62 11/22/24 07:40 Resp 14 11/22/24 07:40 BP 160/60 11/22/24 07:40 Pulse Ox 98 11/22/24 07:40 FiO2 Intake & Output 11/21/24 11/22/24 11/22/24 18:59 06:59 18:59 Intake Total 240 Balance 240 Weight 45.359 kg 52.5 kg Intake: Oral 240 Other: Voiding Method Toilet # Voids 1 1 # Bowel Movements 1 - Labs CBC & Chem 7: 11/22/24 05:24 11/22/24 05:24 Labs: Abnormal Lab Results - Last 24 Hours (Table) 11/21/24 11/21/24 11/21/24 Range/Units 11:47 11:47 17:44 RBC 3.68 L (4.10-5.20) 10*6/uL Hgb 11.5 L (12.0-15.0) g/dL Hct 35.2 L (37.2-46.3) % Potassium 6.3 H* (3.5-5.1) mmol/L Chloride 108 H (98-107) mmol/L Carbon Dioxide 21 L (22-30) mmol/L BUN 54 H (7-17) mg/dL Creatinine 1.66 H (0.52-1.04) mg/dL Glucose 194 H (74-99) mg/dL POC Glucose (mg/dL) 59 L (70-110) mg/dL AST 40 H (14-36) U/L Urine Glucose (UA) (Negative) 11/21/24 11/21/24 11/21/24 Range/Units 18:32 18:54 20:57 RBC (4.10-5.20) 10*6/uL Hgb (12.0-15.0) g/dL Hct (37.2-46.3) % Potassium (3.5-5.1) mmol/L Chloride (98-107) mmol/L Carbon Dioxide (22-30) mmol/L BUN (7-17) mg/dL Creatinine (0.52-1.04) mg/dL Glucose (74-99) mg/dL POC Glucose (mg/dL) 120 H 203 H (70-110) mg/dL AST (14-36) U/L Urine Glucose (UA) Trace H (Negative) 11/22/24 11/22/24 11/22/24 Range/Units 00:35 05:24 05:24 RBC 3.35 L (4.10-5.20) 10*6/uL Hgb 10.5 L (12.0-15.0) g/dL Hct 32.5 L (37.2-46.3) % Potassium (3.5-5.1) mmol/L Chloride 112 H (98-107) mmol/L Carbon Dioxide (22-30) mmol/L BUN 38 H (7-17) mg/dL Creatinine 1.31 H (0.52-1.04) mg/dL Glucose (74-99) mg/dL POC Glucose (mg/dL) 209 H (70-110) mg/dL AST (14-36) U/L Urine Glucose (UA) (Negative) 11/22/24 Range/Units 11:25 RBC (4.10-5.20) 10*6/uL Hgb (12.0-15.0) g/dL Hct (37.2-46.3) % Potassium (3.5-5.1) mmol/L Chloride (98-107) mmol/L Carbon Dioxide (22-30) mmol/L BUN (7-17) mg/dL Creatinine (0.52-1.04) mg/dL Glucose (74-99) mg/dL POC Glucose (mg/dL) 123 H (70-110) mg/dL AST (14-36) U/L Urine Glucose (UA) (Negative)
[2024-11-22 13:11] VITALS: BMI 20.5
[2024-11-22 17:12] LABS: Glucose,Whole Blood 110 mg/dL (70-110)
[2024-11-22 19:59] LABS: Glucose,Whole Blood 152 mg/dL (70-110)
[2024-11-22] MEDS: amLODIPine 10 MG TAB PO SCH (20:28)
[2024-11-23 07:11] LABS: African American GFR (CKD) 36 (>60 ml/min/1.73 sqM); Anion Gap 7 mmol/L; Blood Urea Nitrogen 34 mg/dL (7-17); Calcium 9.2 mg/dL (8.4-10.2); Carbon Dioxide 23 mmol/L (22-30); Chloride 110 mmol/L (98-107); Glucose 101 mg/dL (74-99); Magnesium 1.5 mg/dL (1.6-2.3); Non-African American GFR(CKD) 31 (>60 ml/min/1.73 sqM); Potassium 4.7 mmol/L (3.5-5.1); Sodium 140 mmol/L (137-145)
[2024-11-23 07:26] LABS: Glucose,Whole Blood 93 mg/dL (70-110)
[2024-11-23] MEDS ORDERED: Magnesium Replacement Protocol 1 EACH MISC MISCELLANE PRN (08:09)
[2024-11-23] MEDS: MAGNESIUM SULFATE-D5W PMX 1 GM in DEXTROSE/WATER 1 100ML.BAG IVPB SCH (09:48)
--- NOTE | 2024-11-23 10:17 | P.PN ---
Subjective Patient is seen in follow-up for acute kidney injury on chronic kidney disease and hyperkalemia. Renal function fairly stable. Potassium level remains normal. Hemodynamically stable. Wants to go home. Vital signs are stable. General: No acute distress. HEENT: Head exam is unremarkable. LUNGS: No audible rhonchi or wheezes. HEART: Rate and Rhythm are regular. ABDOMEN: Non-tender. EXTREMITITES: No edema. Objective - Vital Signs Vital signs: Vital Signs Temp 98.5 F 11/23/24 07:38 Pulse 70 11/23/24 07:38 Resp 16 11/23/24 07:38 BP 137/70 11/23/24 07:38 Pulse Ox 98 11/23/24 07:38 FiO2 Intake & Output 11/22/24 11/23/24 11/23/24 18:59 06:59 18:59 Intake Total 330 Balance 330 Weight 52.5 kg 41.5 kg Intake: Oral 330 Other: Voiding Method Toilet Toilet # Voids 2 2 # Bowel Movements 1 - Labs CBC & Chem 7: 11/22/24 05:24 11/23/24 06:25 Labs: Abnormal Lab Results - Last 24 Hours (Table) 11/22/24 11/22/24 11/23/24 Range/Units 11:25 19:58 06:25 Chloride 110 H (98-107) mmol/L BUN 34 H (7-17) mg/dL Creatinine 1.54 H (0.52-1.04) mg/dL Glucose 101 H (74-99) mg/dL POC Glucose (mg/dL) 123 H 152 H (70-110) mg/dL Magnesium 1.5 L (1.6-2.3) mg/dL Assessment and Plan Plan: Assessment: 1. Acute kidney injury secondary to vasomotor nephropathy, improved. Creatinine 1.6 on admission and is 1.5 today. No hydronephrosis noted on ultrasound. Left kidney atrophic. UA benign. 2. Benign hypertension. Controlled. 3. Diabetes mellitus. 4. Hyperkalemia secondary to acute kidney injury and JERMAIN inhibitor use. Improved. Plan: Hep-Lock IV fluids. Continue to hold benazepril for now. Maintain amlodipine. Dose was increased. Avoid nephrotoxins. Follow-up outpatient 1 week postdischarge. Replace magnesium.
[2024-11-23 12:43] LABS: Glucose,Whole Blood 164 mg/dL (70-110)
--- NOTE | 2024-11-23 12:54 | P.DS ---
Providers Date of admission: 11/21/24 13:24 Attending physician: Jaida Leonard MD Consults: 11/21/24 12:42 Consult Physician Routine Consulting Provider: Mariana Velez Consult Reason/Comments: Hyperkalemia Do you want consulting provider notified?: Yes Primary care physician: Luis Saldana MD Hospital Course: Discharge Diagnosis: Hyperkalemia EMERITA on CKD 3B HTN Type II DM not on insulin HLD NOEL on CPAP Hospital Course: s a 79-year-old female with past medical history of NOEL on CPAP, type II DM, hyperlipidemia, hypertension who presented to the ER on 11/21 because she was sent here by PCP due to abnormal lab work particularly elevated potassium level. Saw her PCP for regular checkup and had her blood work done ,showed potassium of 6.0. She complains of feeling shakyr over the past 2 to 3 days, no dizziness, lightheadedness, fevers, chills, chest pain, shortness of breath, abdominal pain, urine production changes, changes in bowel habits, lower extremity edema. She did have left hip pain that she took her medications for, could not remember the name stated it was a prescription drug. She did have unintentional weight loss that is currently stabilized, per patient, it was attributed to her previous diabetes medication. On arrival afebrile, heart rate 55, BP elevated 175/74, satting well on room air. Lab work showed, 6.3, creatinine 1.66. Patient received hyperkalemia cocktail, will be admitted for observation with nephrology consulted.UA came back negative for pyuria, hematuria, proteinuria. Patient is benazepril was discontinued, amlodipine increased to 10 mg to allow better blood pressure control. Nephrology following.ultrasound showed no evidence of hydronephrosis left kidney atrophic. 11/13/2024: Seen examined at bedside, no acute events overnight, no active complaints, ambulating independently, tolerating oral diet. Vitals are stable, potassium normal, creatinine of 1.54, patient is optimized for discharge. Patient was notified on her blood pressure medications changes, her benazepril will be discontinued to discharge, she will follow-up with PCP and nephrology. BMP and magnesium ordered to be done in 3 days Patient seen and examined at bedside. Vital signs reviewed and stable. General: Nontoxic, no distress, appears at stated age Derm: Warm, dry Head: Atraumatic, normocephalic, symmetric Eyes: EOMI, no lid lag, anicteric sclera Mouth: No lip lesion, mucus membranes moist Cardiovascular: S1S2 reg, no murmur Lungs: CTA bilateral, no rhonchi, no rales, no accessory muscle use Abdominal: Soft, nontender to palpation, no guarding, no appreciable organomegaly Ext: No gross muscle atrophy, no edema, no contractures Neuro: CN II-XI grossly intact, no focal neuro deficits Psych: Alert, oriented, appropriate affect A total of 40 minutes of time were spent preparing this complex discharge summary. Patient Condition at Discharge: Fair Plan - Discharge Summary Discharge Rx Participant: Yes New Discharge Prescriptions: New amLODIPine [Norvasc] 10 mg PO HS #30 tab Continue Calcium Carb/Mag Ox/Zinc Sulf [Eip-Zvp-Vxgr 334-134-5 mg Tab] 1 tab PO W/SUPPER Mv-Mn/Om3/Dha/Epa/Fish/Lut/Emir [Ocuvite Adult 50 Plus Softgel] 1 cap PO W/SUPPER Atorvastatin [Lipitor] 40 mg PO W/SUPPER glipiZIDE XL [Glucotrol XL] 2.5 mg PO W/SUPPER Vitamin D (Unknown Dose) 1 cap PO W/SUPPER Discontinued amLODIPine [Norvasc] 5 mg PO HS Benazepril HCl [Lotensin] 20 mg PO DAILY Discharge Medication List Atorvastatin [Lipitor] 40 mg PO W/SUPPER 10/17/21 [History] Calcium Carb/Mag Ox/Zinc Sulf [Ahi-Yqx-Aulb 334-134-5 mg Tab] 1 tab PO W/SUPPER 11/21/24 [History] Mv-Mn/Om3/Dha/Epa/Fish/Lut/Emir [Ocuvite Adult 50 Plus Softgel] 1 cap PO W/SUPPER 11/21/24 [History] Vitamin D (Unknown Dose) 1 cap PO W/SUPPER 11/21/24 [History] glipiZIDE XL [Glucotrol XL] 2.5 mg PO W/SUPPER 11/21/24 [History] amLODIPine [Norvasc] 10 mg PO HS #30 tab 11/23/24 [Rx] Follow up Appointment(s)/Referral(s): Luis Saldana MD [Primary Care Provider] - 1-2 days Romel Perera DO [STAFF PHYSICIAN] - 1 Week Ambulatory/Diagnostic Orders: Basic Metabolic Panel [LAB.AMB] Time Frame: 3 Days, Location: None Selected Magnesium [LAB.AMB] Location: None Selected Patient Instructions/Handouts: Acute Kidney Injury (DC) Activity/Diet/Wound Care/Special Instructions: Please, follow-up with primary care physician, kidney doctor.Please note, your benazepril was discontinued, your amlodipine was increased to 10 mg daily. Please, continue to check your blood pressure daily, keep a log of the readings to discuss with your primary care physician As we discussed, make sure you stay hydrated Avoid NSAIDs, ibuprofen, Aleve Discharge Disposition: HOME SELF-CARE
[2024-11-23 13:02] VITALS: BP 155/66; PULSE 62; RESP 18; TEMP 98
== END 2024-11-23 15:10 | disposition home or self-care (01) ==
LOC: EC 11:16 → 3SCARD 13:24 → 5NMEDONC 11-23 06:17
PROVIDERS: ADMIT Family Medicine; ATTEND Family Medicine
DX: E87.5 Hyperkalemia (principal); N17.0 Acute kidney failure with tubular necrosis; I12.9 Hypertensive chronic kidney disease with stage 1 through stage 4 chronic kidney disease, or unspecified chronic kidney disease; E11.22 Type 2 diabetes mellitus with diabetic chronic kidney disease; N18.32 Chronic kidney disease, stage 3b; E78.5 Hyperlipidemia, unspecified; G47.33 Obstructive sleep apnea (adult) (pediatric); Z79.84 Long term (current) use of oral hypoglycemic drugs; Z79.899 Other long term (current) drug therapy
CPT/HCPCS: 96365; 96366; 96375; 99291; 36415; 93005; 82570; 80053; 80048 ×2; 83735; 84132; 84550; 85025 ×2; 81003; 76770; G0378 ×3; J3475; J0613